=== PATIENT | female | born 2000 | race Two or more races ===

== ENCOUNTER 2022-05-08 11:57 | Emergency (ER) | payer OTHER ==
[~2022-05-08] VITALS: Ht 170.2 cm; Wt 113.4 kg
== END 2022-05-08 17:21 | disposition home or self-care (01) ==
LOC: ER 11:57
DX: R10.2 Pelvic and perineal pain (principal); Z88.6 Allergy status to analgesic agent

== ENCOUNTER 2022-05-22 08:24 | Emergency (ER) | payer OTHER ==
[~2022-05-22] VITALS: Ht 167.6 cm; Wt 113.4 kg
== END 2022-05-22 12:55 | disposition home or self-care (01) ==
LOC: ER 08:24
DX: N92.0 Excessive and frequent menstruation with regular cycle (principal); R10.2 Pelvic and perineal pain; Z88.6 Allergy status to analgesic agent